=== PATIENT | female | born 1940 | race American Indian/Alaskan Native ===

== ENCOUNTER 2016-10-03 22:29 | Inpatient (IN) | payer MEDICARE ==
[2016-10-03 23:40] LABS: Anion Gap 18 mmol/L; BUN/Creatinine Ratio 13.57; Blood Urea Nitrogen 19 mg/dL (7-17); Calcium 9.1 mg/dL (8.4-10.2); Carbon Dioxide 25 mmol/L (22-30); Chloride 105.5 mmol/L (98-107); Glucose 119 mg/dL (65-100); Potassium 3.3 mmol/L (3.6-5.0); Sodium 145 mmol/L (137-145)
[2016-10-03 23:44] LABS: Basophils % (Auto) 0.7 % (0.0-1.8); Eosinophils % (Auto) 4.7 % (0.0-4.3); Hematocrit 31.9 % (30.3-42.9); Hemoglobin 10.4 gm/dl (10.1-14.3); Mean Corpuscular HGB Conc 33 % (30-34); Platelet Count 390 K/mm3 (140-440); Red Blood Count 4.89 M/mm3 (3.65-5.03); Red Cell Distribution Width 18.1 % (13.2-15.2); White Blood Count 8.1 K/mm3 (4.5-11.0)
[2016-10-03 23:46] LABS: Mean Corpuscular Hemoglobin 21 pg (28-32); Mean Corpuscular Volume 65 fl (79-97)
[2016-10-04] MEDS ORDERED: K-DUR PO ONE (00:08)
--- NOTE | 2016-10-04 01:00 | Emergency Department Report ---
ED Chest Pain HPI - General Chief Complaint: Chest Pain Stated Complaint: CHEST PAIN Time Seen by Provider: 10/04/16 00:07 Source: patient, old records reviewed (no previous records available) Mode of arrival: Ambulatory Limitations: No Limitations - History of Present Illness Initial Comments: 76 year female with past medical history CHF, COPD, diabetes, renal insufficiency, and CAD with stent placement presents to the hospital complaints of chest pain 2 days. Patient complains of pain on the right, middle, and left side of her chest that is intermittent. Pain is worse with movement. Shortness of breath on occasion. Positive nausea without vomiting. Patient compliant with her medication. 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 She reports a last stress test was about a year ago and she had a cardiac cath 2 years ago when she had a stent placement had a cardiac stent placed. She states she has either 1 or 2 stents. She has been compliant with her medication. EKG here positive for atrial flutter. Patient thinks she has a history of-flutter however, she is not on any anticoagulations. She does take Brilinta - Related Data Home Medications Medication Instructions Recorded Confirmed Last Taken Aspirin [Aspirin BABY CHEW TAB] 81 mg PO QDAY 10/04/16 10/04/16 Unknown AtorvaSTATin [Lipitor] 40 mg PO QHS 10/04/16 10/04/16 Unknown Gabapentin [Neurontin] 300 mg PO Q8HR 10/04/16 10/04/16 Unknown Meloxicam [Mobic] 7.5 mg PO QDAY 10/04/16 10/04/16 Unknown Nitroglycerin [Nitrostat] 0.4 mg SL Q5M PRN 10/04/16 10/04/16 Unknown Potassium Chloride 20 meq PO BID 10/04/16 10/04/16 Unknown Ticagrelor [Brilinta] 90 mg PO BID 10/04/16 10/04/16 Unknown cloNIDine [Catapres] 0.1 mg PO BID 10/04/16 10/04/16 Unknown diphenhydrAMINE [Benadryl CAP] 25 mg PO Q6HR PRN 10/04/16 10/04/16 Unknown hydrALAZINE [Apresoline TAB] 100 mg PO TID 10/04/16 10/04/16 Unknown Allergies Allergy/AdvReac Type Severity Reaction Status Date / Time hydralazine HCl Allergy Hives Verified 10/03/16 22:47 [From Apresoline] tuberculin, purified protein Allergy Hives Verified 10/03/16 22:47 deriva Heart Score - HEART Score History: Slightly suspicious EKG: Non-specific Age: > 65 Risk factors: > 3 risk factors or hx of atherosclerotic disease Troponin: < normal limit HEART Score: 5 ED Review of Systems ROS: Stated complaint: CHEST PAIN Other details as noted in HPI Comment: All other systems reviewed and negative Other: Constitutional: No fevers chills Eyes: No eye pain visual changes or discharge ENT: No ear pain or throat pain Neck: Denies pain Respiratory: Denies cough wheezing Cardiovascular: As per HPI GI: Denies abdominal pain, nausea, vomiting, diarrhea : Denies dysuria, urinary frequency, or urgency Musculoskeletal: Denies back pain, joint swelling Skin: Denies rash, lesions, erythema Neurologic: Denies headache, numbness, weakness, patient ambulates with a cane Psychiatric: Denies suicidal ideation, hallucinations ED Past Medical Hx - Past Medical History Hx Congestive Heart Failure: Yes Hx Diabetes: Yes Hx Renal Disease: Yes Hx COPD: Yes - Surgical History Past Surgical History?: Yes Hx Coronary Stent: Yes - Social History Smoking Status: Current Every Day Smoker Substance Use Type: None - Medications Home Medications: Home Medications Medication Instructions Recorded Confirmed Last Taken Type Aspirin [Aspirin BABY CHEW TAB] 81 mg PO QDAY 10/04/16 10/04/16 Unknown History AtorvaSTATin [Lipitor] 40 mg PO QHS 10/04/16 10/04/16 Unknown History Gabapentin [Neurontin] 300 mg PO Q8HR 10/04/16 10/04/16 Unknown History Meloxicam [Mobic] 7.5 mg PO QDAY 10/04/16 10/04/16 Unknown History Nitroglycerin [Nitrostat] 0.4 mg SL Q5M PRN 10/04/16 10/04/16 Unknown History Potassium Chloride 20 meq PO BID 10/04/16 10/04/16 Unknown History Ticagrelor [Brilinta] 90 mg PO BID 10/04/16 10/04/16 Unknown History cloNIDine [Catapres] 0.1 mg PO BID 10/04/16 10/04/16 Unknown History diphenhydrAMINE [Benadryl CAP] 25 mg PO Q6HR PRN 10/04/16 10/04/16 Unknown History hydrALAZINE [Apresoline TAB] 100 mg PO TID 10/04/16 10/04/16 Unknown History ED Physical Exam - General Limitations: No Limitations - Other Other exam information: General: No limitations, patient is alert in no acute distress Head exam: Atraumatic, normocephalic Eyes exam: Normal appearance, pupils equal reactive to light, extraocular movements intact ENT: Moist mucous membrane, normal oropharynx Neck exam: Normal inspection, full range of motion, no meningismus nontender Respiratory exam: Clear to auscultation bilateral, no wheezes, rales, crackles Cardiovascular: Irregular rhythm, chest wall nontender Abdomen: Soft, nondistended, and nontender, with normal bowel sounds, no rebound, or guarding Extremity: Full range of motion normal inspection no deformity, no calf tenderness or edema Back: Normal Inspection, full range of motion, no tenderness Neurologic: Alert, oriented x3, cranial nerves intact, no motor or sensory deficit Psychiatric: normal affect, normal mood Skin: Warm, dry, intact ED Course Vital Signs 10/03/16 22:49 Temperature 98.6 F Pulse Rate 94 H Blood Pressure 167/84 O2 Sat by Pulse 96 Oximetry - Reevaluation(s) Reevaluation #1: 10/04/16 01:04 pt stable pain free at this time ALFREDA score - Alfreda Score Age > 65: (1) Yes Aspirin use within the Past 7 Days: (1) Yes 3 or more CAD Risk Factors: (1) Yes 2 or more Angina events in past 24 hrs: (1) Yes Known CAD with more than 50% Stenosis: (0) No Elevated Cardiac Markers: (0) No ST Deviation Greater than 0.5mm: (0) No ALFREDA Score: 4 ED Medical Decision Making - Lab Data Result diagrams: 10/03/16 22:56 10/03/16 22:56 Lab Results 10/03/16 10/03/16 Range/Units 22:56 22:56 WBC 8.1 (4.5-11.0) K/mm3 RBC 4.89 (3.65-5.03) M/mm3 Hgb 10.4 (10.1-14.3) gm/dl Hct 31.9 (30.3-42.9) % MCV 65 L (79-97) fl MCH 21 L (28-32) pg MCHC 33 (30-34) % RDW 18.1 H (13.2-15.2) % Plt Count 390 (140-440) K/mm3 Lymph % (Auto) 26.6 (13.4-35.0) % [place] % (Auto) 6.8 (0.0-7.3) % Eos % (Auto) 4.7 H (0.0-4.3) % Baso % (Auto) 0.7 (0.0-1.8) % Lymph # 2.2 (1.2-5.4) K/mm3 [place] # 0.5 (0.0-0.8) K/mm3 Eos # 0.4 (0.0-0.4) K/mm3 Baso # 0.1 (0.0-0.1) K/mm3 Seg Neutrophils % 61.2 (40.0-70.0) % Seg Neutrophils # 5.0 (1.8-7.7) K/mm3 Sodium 145 (137-145) mmol/L Potassium 3.3 L (3.6-5.0) mmol/L Chloride 105.5 (98-107) mmol/L Carbon Dioxide 25 (22-30) mmol/L Anion Gap 18 mmol/L BUN 19 H (7-17) mg/dL Creatinine 1.4 H (0.7-1.2) mg/dL Estimated GFR 37 ml/min BUN/Creatinine Ratio 13.57 % Glucose 119 H (65-100) mg/dL Calcium 9.1 (8.4-10.2) mg/dL Troponin T < 0.010 (0.00-0.029) ng/mL - EKG Data -: EKG Interpreted by Me (aflutter rate 113, variable block) - Radiology Data Radiology results: image reviewed (cxr: naf) - Medical Decision Making Plan to admit pt to hospital for further cardiac workup - Differential Diagnosis mi, chest wall pain ,unstable angina, msk pain Critical Care Time: No Critical care attestation.: If time is entered above; I have spent that time in minutes in the direct care of this critically ill patient, excluding procedure time. ED Disposition Clinical Impression: Chest pain, H/O heart artery stent, Atrial flutter, Hypokalemia Disposition: - OP ADMIT IP TO THIS HOSP Is pt being admited?: Yes Condition: Stable Time of Disposition: 01:03 (Dr Benítez/hosp)
[2016-10-04] MEDS ORDERED: TYLENOL PO PRN (02:44)
[2016-10-04] MEDS ORDERED: DULCOLAX PR PRN (02:44)
[2016-10-04] MEDS ORDERED: ZOFRAN IV PRN (02:44)
[2016-10-04] MEDS ORDERED: MILK OF MAGNESIA PO PRN (02:44)
--- NOTE | 2016-10-04 04:19 | History and Physical Report ---
History of Present Illness Date of examination: 10/04/16 Date of admission: 10/04/16 02:44 History of present illness: 76-year-old woman with a history of CHF, coronary artery disease, chronic, COPD constant emergency room with complaint of chest pain located in the epigastric area. She describes it as a stabbing pain, intermittent in nature every 10 minutes, intensity 7/10, radiating to the bilateral chest. She took 2 nitroglycerin with some relief. Admits to nausea, diaphoresis, shortness of breath, no palpitation. Probably had sustained a stress test a year ago Patient denies cough, abdominal pain, hematochezia, dysuria, frequency, focal weakness, dysarthria, fever chills, polydipsia polyuria, hot or cold intolerance , easy bruisability, or rash or bleeding from mucosal membrane, rhinorrhea, epistaxis, earache, tinnitus, blurry vision, eye discharge, anxiety, depression. Other review of systems negative PAST SURGICAL HISTORY: Hysterectomy, tonsillectomy SOCIAL HISTORY: Smokes 6 cigarettes a day, no alcohol or drug FAMILY HISTORY: Hypertension Medications and Allergies Allergies Allergy/AdvReac Type Severity Reaction Status Date / Time hydralazine HCl Allergy Hives Verified 10/03/16 22:47 [From Apresoline] tuberculin, purified protein Allergy Hives Verified 10/03/16 22:47 deriva Home Medications Medication Instructions Recorded Confirmed Last Taken Type Aspirin [Aspirin BABY CHEW TAB] 81 mg PO QDAY 10/04/16 10/04/16 Unknown History AtorvaSTATin [Lipitor] 40 mg PO QHS 10/04/16 10/04/16 Unknown History Gabapentin [Neurontin] 300 mg PO Q8HR 10/04/16 10/04/16 Unknown History Meloxicam [Mobic] 7.5 mg PO QDAY 10/04/16 10/04/16 Unknown History Nitroglycerin [Nitrostat] 0.4 mg SL Q5M PRN 10/04/16 10/04/16 Unknown History Potassium Chloride 20 meq PO BID 10/04/16 10/04/16 Unknown History Ticagrelor [Brilinta] 90 mg PO BID 10/04/16 10/04/16 Unknown History cloNIDine [Catapres] 0.1 mg PO BID 10/04/16 10/04/16 Unknown History diphenhydrAMINE [Benadryl CAP] 25 mg PO Q6HR PRN 10/04/16 10/04/16 Unknown History hydrALAZINE [Apresoline TAB] 100 mg PO TID 10/04/16 10/04/16 Unknown History Active Meds: Active Medications Acetaminophen (Tylenol) 650 mg PO Q4H PRN PRN Reason: Pain MILD(1-3)/Fever >100.5/ORTIZ Aspirin (Baby Aspirin) 81 mg PO QDAY AMBER Atorvastatin Calcium (Lipitor) 40 mg PO QHS [facility] Bisacodyl (Dulcolax) 10 mg [place] QDAY PRN PRN Reason: Constipation unrelieved by MOM Clonidine HCl (Catapres) 0.1 mg PO BID AM[facility] Gabapentin (Neurontin) 300 mg PO Q8HR AMBER Magnesium Hydroxide (Milk Of Magnesia) 30 ml PO Q4H PRN PRN Reason: Constipation Morphine Sulfate (Morphine) 2 mg IV Q4H PRN PRN Reason: Pain, Moderate (4-6) Ondansetron HCl (Zofran) 4 mg IV Q8H PRN PRN Reason: N/V unrelieved by Reglan Ticagrelor (Brilinta) 90 mg PO BID [facility] Exam - Physical Exam Narrative exam: Gen. appearance: Patient lying in bed, no apparent distress HEENT: Normocephalic, atraumatic, pupils equally round and reactive to light, extraocular movement intact, and no sclericterus,. No JVD or thyromegaly or nodule,neck supple, no carotid bruit ,mucous membranes moist, no exudate or erythema Heart: S1, S2, regular rate and rhythm Lungs: Clear to auscultation bilaterally, breathing comfortable Abdomen: Positive bowel sounds, nontender, nondistended, no organomegaly Extremity: No edema, cyanosis, clubbing Skin: No rash, nodules, warm, dry Neuro: Oriented 3, cranial nerves II-12 intact, speech is fluent, motor and sensory intact - Constitutional Vitals: Temp Pulse Resp BP Pulse Ox 98.6 F 94 H 167/84 96 10/03/16 22:49 10/03/16 22:49 10/03/16 22:49 10/03/16 22:49 Results - Labs CBC & Chem 7: 10/03/16 22:56 10/03/16 22:56 - Imaging and Cardiology EKG: image reviewed Chest x-ray: image reviewed Assessment and Plan Unstable angina Coronary artery disease CHF, stable Chronic kidney disease COPD Admits medicine Check cardiac enzymes, consult cardiology Continue appropriate outpatient medications Due to prophylaxis initiate
[2016-10-04] MEDS: NEURONTIN PO SCH ×3 (06:50→21:35)
[2016-10-04] MEDS ORDERED: LEXISCAN IV ONE (08:16)
[2016-10-04] MEDS: APRESOLINE IV PRN ×2 (08:25→18:12)
--- NOTE | 2016-10-04 09:40 | XRay Report ---
AP CHEST: HISTORY: chest pain No comparison. Mild cardiomegaly is suspected. Normal pulmonary vascularity. The lungs are clear. The bony thorax is grossly intact. IMPRESSION: Mild cardiomegaly. Lungs clear.
[2016-10-04] MEDS ORDERED: LOVENOX SUB-Q SCH (10:00)
--- NOTE | 2016-10-04 10:35 | Consultation ---
History of Present Illness Consult date: 10/04/16 Consult reason: chest pain History of present illness: 76 YO woman with h/o CAD s/p PCI about 2 years ago (normally followed by vp strategy at [facility]), CHF, htn, and HL who presented to ED with stabbing type of left sided chest pain. She describes the pain as sharp sensation mostly in the epigastric area with associated nausea and diaphoresis. She thinks pain gets worse with exertion. She has not had any palpitations syncope or pre- syncope. Of note, patient has midline scar in sub-xiphoid area and is not sure what kind of surgery she previously had - she thinks it may have been a pericardial window many years ago due to pericardial effusion which was done in [place]. ECG reveals NSR, LVH with repolarization abnormality. Past History Past Medical History: CAD, heart failure, hypertension, hyperlipidemia Past Surgical History: PTCA, Other (possible pericardial window.) Social history: smoking (smokes 6 cigarettes per day.) Medications and Allergies Allergies Allergy/AdvReac Type Severity Reaction Status Date / Time hydralazine HCl Allergy Hives Verified 10/03/16 22:47 [From Apresoline] tuberculin, purified protein Allergy Hives Verified 10/03/16 22:47 deriva Home Medications Medication Instructions Recorded Confirmed Last Taken Type Aspirin [Aspirin BABY CHEW TAB] 81 mg PO QDAY 10/04/16 10/04/16 Unknown History AtorvaSTATin [Lipitor] 40 mg PO QHS 10/04/16 10/04/16 Unknown History Gabapentin [Neurontin] 300 mg PO Q8HR 10/04/16 10/04/16 Unknown History Meloxicam [Mobic] 7.5 mg PO QDAY 10/04/16 10/04/16 Unknown History Nitroglycerin [Nitrostat] 0.4 mg SL Q5M PRN 10/04/16 10/04/16 Unknown History Potassium Chloride 20 meq PO BID 10/04/16 10/04/16 Unknown History Ticagrelor [Brilinta] 90 mg PO BID 10/04/16 10/04/16 Unknown History cloNIDine [Catapres] 0.1 mg PO BID 10/04/16 10/04/16 Unknown History diphenhydrAMINE [Benadryl CAP] 25 mg PO Q6HR PRN 10/04/16 10/04/16 Unknown History hydrALAZINE [Apresoline TAB] 100 mg PO TID 10/04/16 10/04/16 Unknown History Active Meds: Active Medications Acetaminophen (Tylenol) 650 mg PO Q4H PRN PRN Reason: Pain MILD(1-3)/Fever >100.5/ORTIZ Aspirin (Baby Aspirin) 81 mg PO QDAY [facility] Atorvastatin Calcium (Lipitor) 40 mg PO QHS [facility] Bisacodyl (Dulcolax) 10 mg [place] QDAY PRN PRN Reason: Constipation unrelieved by MOM Clonidine HCl (Catapres) 0.1 mg PO BID [facility] Gabapentin (Neurontin) 300 mg PO Q8HR AMBER Last Admin: 10/04/16 06:50 Dose: 300 mg Hydralazine HCl (Apresoline) 10 mg IV Q3HR PRN PRN Reason: Hypertension Last Admin: 10/04/16 08:25 Dose: 10 mg Magnesium Hydroxide (Milk Of Magnesia) 30 ml PO Q4H PRN PRN Reason: Constipation Morphine Sulfate (Morphine) 2 mg IV Q4H PRN PRN Reason: Pain, Moderate (4-6) Ondansetron HCl (Zofran) 4 mg IV Q8H PRN PRN Reason: N/V unrelieved by Reglan Ticagrelor (Brilinta) 90 mg PO BID [facility] Review of Systems All systems: negative (per hpi) Physical Examination Vital Signs Temp Pulse BP Pulse Ox 98.6 F 94 H 167/84 96 10/03/16 22:49 10/03/16 22:49 10/03/16 22:49 10/03/16 22:49 General appearance: no acute distress HEENT: Positive: PERRL, EOMI Neck: Positive: neck supple. Negative: JVD/HJR Cardiac: Positive: Reg Rate and Rhythm, Systolic Murmur (II/ systolic ejection murmur) Lungs: Positive: Decreased Breath Sounds Neuro: Positive: Grossly Intact Abdomen: Positive: Soft, Active Bowel Sounds Extremities: Absent: edema Results 10/03/16 22:56 10/03/16 22:56 Assessment and Plan Chest pain with typical and atypical features. CAD s/p PCI htn HL Tobacco use. Recommend: Check MPI today Check Echocardiogram Adjust BP medications, add beta little.
[2016-10-04] MEDS: MORPHINE IV PRN ×2 (12:13→17:53)
[2016-10-04] MEDS: CATAPRES PO SCH ×2 (12:13→21:33)
[2016-10-04] MEDS: BABY ASPIRIN PO SCH (12:13)
--- NOTE | 2016-10-04 12:49 | Event Note ---
Date: 10/04/16 Preliminarily, MPI reveals small, mostly fixed inferior-lateral defect. Tim Paulson
--- NOTE | 2016-10-04 13:36 | Event Note ---
Date: 10/04/16 Patient seen and evaluated in ED , awaiting bed assignment Medical records reviewed, was admitted this morning with chest pain, unstable angina Underwent stress test which was abnormal, discussed with cardiology Patient complains of headache, dizziness, history of recurrent falls, we'll check CT scan of the head without contrast Medical records reviewed, agree with the current management Follow cardiology recommendations, plan of care discussed with the patient and her nurse
[2016-10-04] MEDS: BRILINTA PO SCH ×2 (14:08→21:35)
[2016-10-04] MEDS ORDERED: HABITROL TD SCH (16:30)
--- NOTE | 2016-10-04 16:35 | Cat Scan Report ---
FINAL REPORT EXAM: CT HEAD/BRAIN WO CON HISTORY: headache, history of falls TECHNIQUE: CT head without contrast PRIORS: None. FINDINGS: No acute intra-axial or extra-axial hemorrhage is identified. There is no evidence of midline shift or mass effect. The ventricles and sulci are within normal limits. Morales-white matter differentiation is intact. No acute parenchymal abnormalities seen. There are patchy and confluent hypodensities within the supratentorial white matter. Bony calvarium is grossly intact. There is increased density within mastoid air cells bilaterally likely reflecting mastoiditis which may be acute or chronic IMPRESSION: Mastoiditis bilaterally which may be acute or chronic Chronic small vessel white matter ischemic change
[2016-10-04] MEDS ORDERED: COREG PO SCH (22:00)
[2016-10-05] MEDS: NEURONTIN PO SCH ×2 (05:44→14:12)
[2016-10-05 06:03] LABS: Basophils % (Auto) 0.5 % (0.0-1.8); Eosinophils % (Auto) 5.8 % (0.0-4.3); Hematocrit 30.9 % (30.3-42.9); Hemoglobin 9.9 gm/dl (10.1-14.3); Mean Corpuscular HGB Conc 32 % (30-34); Platelet Count 316 K/mm3 (140-440); Red Cell Distribution Width 18.1 % (13.2-15.2); White Blood Count 7.4 K/mm3 (4.5-11.0)
[2016-10-05 06:05] LABS: Mean Corpuscular Hemoglobin 21 pg (28-32); Mean Corpuscular Volume 66 fl (79-97)
[2016-10-05 06:27] LABS: BUN/Creatinine Ratio 14.61; Calcium 8.5 mg/dL (8.4-10.2)
[2016-10-05 06:50] LABS: Chloride 107.7 mmol/L (98-107); Potassium 3.8 mmol/L (3.6-5.0)
[2016-10-05] MEDS ORDERED: COREG PO SCH (08:06)
[2016-10-05] MEDS ORDERED: APRESOLINE IV PRN (08:07)
--- NOTE | 2016-10-05 08:09 | Progress Note ---
Hospitalist Physical - Constitutional Vitals: Temp Pulse Resp BP Pulse Ox 98.7 F 70 20 190/87 98 10/05/16 04:41 10/05/16 04:41 10/05/16 04:41 10/05/16 04:41 10/05/16 04:41 General appearance: Present: no acute distress Results - Labs CBC & Chem 7: 10/05/16 04:46 10/05/16 04:46 Labs: Laboratory Last Values WBC 7.4 K/mm3 (4.5-11.0) 10/05/16 04:46 RBC 4.70 M/mm3 (3.65-5.03) 10/05/16 04:46 Hgb 9.9 gm/dl (10.1-14.3) L 10/05/16 04:46 Hct 30.9 % (30.3-42.9) 10/05/16 04:46 MCV 66 fl (79-97) L 10/05/16 04:46 MCH 21 pg (28-32) L 10/05/16 04:46 MCHC 32 % (30-34) 10/05/16 04:46 RDW 18.1 % (13.2-15.2) H 10/05/16 04:46 Plt Count 316 K/mm3 (140-440) 10/05/16 04:46 Lymph % (Auto) 17.2 % (13.4-35.0) 10/05/16 04:46 [place] % (Auto) 8.7 % (0.0-7.3) H 10/05/16 04:46 Eos % (Auto) 5.8 % (0.0-4.3) H 10/05/16 04:46 Baso % (Auto) 0.5 % (0.0-1.8) 10/05/16 04:46 Lymph # 1.3 K/mm3 (1.2-5.4) 10/05/16 04:46 [place] # 0.6 K/mm3 (0.0-0.8) 10/05/16 04:46 Eos # 0.4 K/mm3 (0.0-0.4) 10/05/16 04:46 Baso # 0.0 K/mm3 (0.0-0.1) 10/05/16 04:46 Seg Neutrophils % 67.8 % (40.0-70.0) 10/05/16 04:46 Seg Neutrophils # 5.0 K/mm3 (1.8-7.7) 10/05/16 04:46 Sodium 145 mmol/L (137-145) 10/05/16 04:46 Potassium 3.8 mmol/L (3.6-5.0) 10/05/16 04:46 Chloride 107.7 mmol/L (98-107) H 10/05/16 04:46 Carbon Dioxide 30 mmol/L (22-30) 10/05/16 04:46 Anion Gap 11 mmol/L 10/05/16 04:46 BUN 19 mg/dL (7-17) H 10/05/16 04:46 Creatinine 1.3 mg/dL (0.7-1.2) H 10/05/16 04:46 Estimated GFR 48 ml/min 10/05/16 04:46 BUN/Creatinine Ratio 14.61 % 10/05/16 04:46 Glucose 109 mg/dL (65-100) H 10/05/16 04:46 Calcium 8.5 mg/dL (8.4-10.2) 10/05/16 04:46 Troponin T < 0.010 ng/mL (0.00-0.029) 10/04/16 04:54
--- NOTE | 2016-10-05 09:51 | Admit Criteria Form ---
Admission Criteria Documentation: CHEST PAIN Clinical Indications for Admission to Inpatient Care (Place 'X' for any and all applicable criteria): Admission is indicated for chest pain and ANY ONE of the following(1)(2)(3)(4)(5 ): [ ]I. Angina with acute coronary syndrome (Also use Myocardial Infarction or Angina guideline) [ ]II. Hemodynamic instability [X]III. Angina needing acute intervention as indicated by ALL of the following( 11)(12): [ ]a) Unstable angina is present as indicated by angina that is ANY ONE of the following: [ ]i) New onset [ ]ii) Nocturnal [ ]iii) Prolonged at rest [ ]iv) Progressive [X]b) Angina warrants acute intervention as indicated by ANY ONE of the following: [ ]i) Recurrent angina (e.g, not responding as previously to treatment) [ ]ii) Angina at rest or with low-level activities despite initial medical therapy [ ]iii) New or presumably new ST-segment depression on ECG [ ]iv) Signs or symptoms of heart failure (eg, dyspnea, pulmonary edema) [ ]v) New or worsening mitral regurgitation [ ]vi) Hemodynamic instability [ ]vii) Dangerous arrhythmia (eg, sustained ventricular tachycardia) [ ]viii) History of percutaneous coronary intervention within 6 months [ ]ix) History of coronary artery bypass graft surgery [X]x) ALFREDA risk score of 2 or greater[A] [ ]xi) History of Diabetes(14) [ ]xii) High-risk cardiac ischemia findings on noninvasive testing (e.g, echocardiogram, treadmill testing, nuclear scan) [ ]xiii) Chronic renal insufficiency (ie, estimated GFR less than 60 mL/min/1.732m) [ ]xiv) Left ventricular ejection fraction less than 40% [ ]IV. Evidence of NC (eg, cardiac biomarkers positive, ST-segment elevation on ECG) also use Myocardial Infarction Criteria Form. [ ]V. Pulmonary edema [ ]. Respiratory distress [ ]VII. Chest pain indicative of serious diagnosis other than coronary artery disease (eg, aortic dissection) [ ]VIII. Contraindications and/or Inappropriate clinical situations for Observational Care in patients with Chest Pain, when ANY ONE of the following is required: [ ]a) Patient with risk factor for pulmonary embolism, acute coronary syndrome and myocardial infarction (18) [ ]b) Patient with Pulmonary embolism require an average LOS of 4.3 days, therefore emergency department observation management is inappropriate 18,23 [ ]c) Painful condition/s in the elderly, have the highest rate of recidivism after emergency department observation management (10.8%) 20,21,22 [ ]d) Elevated cardiac biomarker requires intensive and exhaustive care (19) [ ]IX. General contraindications and/or Inappropriate clinical situations for Observational Care in patients with Chest Pain, when ANY ONE of the following is required: [ ]a) Prediction of prolongation of LOS based on ANY ONE of the following may be considered as a contraindication for observational care 2, 3, 4, 5, 6, 7, 8, 9, 10, 11 [ ]i) Age > 65 yrs. [ ]ii) Patient arriving by ambulance [ ]iii) Patient with high acuity [ ]iv) Patient requiring vital sign monitoring [ ]v) Patient on IV medication [ ]b) Systolic blood pressures 180mmHg 3,12 [ ]c) Patient with altered mental status including delirium and other alteration of consciousness, (3) [ ]d) Patient whose discharge disposition will be to a alf home or rehabilitation home should not be managed in Emergency Department Observation Unit. CMS rule requires 3 days hospital stay before such placement. 3,13 [ ]e) Patient with failure to thrive due to broad array of etiologies 3,16,17 [ ]f) Inability to ambulate 3,14 Extended stay beyond goal length of stay may be needed for (1)(28): [ ]a) Specific condition diagnosed after evaluation (eg, pulmonary embolism, aortic dissection) [ ]b) Unstable angina [ ]c) Continued suspicion of acute coronary syndrome with inability to complete needed cardiac evaluation (eg, patient clinically unable to undergo stress testing) [ ]d) Myocardial infarction (Contents from ANGINA and CHEST PAIN clinical indications for admission to inpatient care have been integrated in this form) The original [employer] includes the [facility] content created by [employer] has been revised. The portions of the content which have been revised are identified through the use of italic text or in bold, and [facility] has neither reviewed nor approved the modified material. All other unmodified content is copyright [employer] includes the [facility]. Please see references footnoted in the original [employer] includes the [facility] edition 2016 Admission Criteria Met: Yes
[2016-10-05] MEDS: BABY ASPIRIN PO SCH (11:11)
[2016-10-05] MEDS: MORPHINE IV PRN (11:12)
[2016-10-05] MEDS: BRILINTA PO SCH (11:12)
[2016-10-05] MEDS: CATAPRES PO SCH (11:45)
[2016-10-05 12:19] VITALS: BP 195/95
--- NOTE | 2016-10-05 13:31 | Discharge Summary ---
Providers - Providers Date of Admission: 10/04/16 02:44 Date of discharge: 10/05/16 Attending physician: NUPUR SCOTT 10/04/16 04:10 Consult to Physician [CONS] Routine Consulting Provider: JEANINE ROSARIO Reason For Exam: ua Place consult to:: [facility] Notified:: Y Was contact made?: Yes If yes, spoke with:: Ana/Christopher HAMMOND Time called:: 08:20 Primary care physician: CHARTER COORDINATOR Hospitalization Reason for admission: chest pain Condition: Stable Pertinent studies: Chest x-ray; mild cardiomegaly CT head without contrast; no acute cardiopulmonary abnormality noted, mastoiditis bilateral acute on chronic, chronic small vessel white matter disease Echocardiogram; left ventricle systolic function is normal ejection fraction 55- 60% Lexiscan stress test; small fixed inferior lateral defect, normal LV function Hospital course: 76-year-old female patient significant past medical history of coronary artery disease COPD hypertension diastolic congestive heart failure was admitted through emergency room with left-sided chest pain as well as epigastric pain Patient was initially evaluated admitted to the hospital symptomatically managed , seen by cardiology, underwent Lexiscan stress test, which has fixed small defect, normal left ventricle function Patient was symptomatically managed, medications were optimized, cardiology recommended medical management, no further workup is needed at this point Today she is comfortable in bed, vital signs are stable, denies chest pain or shortness of breath, alert awake oriented 3 not in acute distress, face-to- face evaluation and physical examination done by me prior to discharge is unremarkable as detailed below The patient is hemodynamically and clinically stable for discharge and does not need any further acute inpatient care at this time Cleared by cardiology for discharge and follow-up with him in the office per schedule Smoking cessation counseling done, patient strongly advised to quit tobacco use advised nicotine patch as needed Final diagnosis; Atypical chest pain resolved Stress test negative Costochondritis Coronary artery disease status post PCI Hypertension Diastolic congestive heart failure Dyslipidemia Ongoing tobacco use Disposition: DC/TX-06 HOME UNDER HOME [facility] Time spent for discharge: 31 min Core Measure Documentation - Palliative Care Palliative Care/ Comfort Measures: Not Applicable - Core Measures Any of the following diagnoses?: none Exam - Constitutional Vitals: Temp Pulse Resp BP Pulse Ox 98.5 F 60 18 195/95 100 10/05/16 12:13 10/05/16 12:13 10/05/16 12:13 10/05/16 12:56 10/05/16 08:06 General appearance: Present: no acute distress, well-nourished - EENT Eyes: Present: PERRL, EOM intact - Neck Neck: Present: supple, normal ROM - Respiratory Respiratory effort: normal Respiratory: bilateral: diminished, negative: rales, rhonchi, wheezing - Cardiovascular Rhythm: regular Heart Sounds: Present: S1 & S2 - Extremities Extremities: no ischemia, No edema - Abdominal General gastrointestinal: Present: soft, non-tender, non-distended, normal bowel sounds - Integumentary Integumentary: Present: clear, warm - Musculoskeletal Musculoskeletal: strength equal bilaterally, generalized weakness - Psychiatric Psychiatric: appropriate mood/affect, cooperative - Neurologic Neurologic: CNII-XII intact, moves all extremities Plan Activity: advance as tolerated, fall precautions Diet: other (cardiac diet) Special Instructions: physical therapy Additional Instructions: If you have chest pain or shortness of breath, contact M.D. or go to emergency room Follow up with: EMILY HERNANDEZ MD [Primary Care Provider] - 7 Days AIDEE SANABRIA MD [Staff Physician] - 7 Days Prescriptions: Carvedilol [Coreg] 12.5 mg PO BID #60 tablet
[2016-10-05] MEDS ORDERED: APRESOLINE PO SCH (14:00)
--- NOTE | 2016-10-05 14:11 | Progress Note ---
Assessment and Plan - Patient Problems (1) Chest pain Current Visit: Yes Status: Acute Qualifiers: Chest pain type: C Ischemic chest pain type: I Plan to address problem: She had a Persantine thallium stress test yesterday, that demonstrated a small fixed basal inferior defect with no ischemia. Echocardiogram today demonstrates normal left ventricular systolic function, ejection fraction 55-60% . There is a calcified and sclerotic aortic valve, but only minimal aortic stenosis. No further cardiac workup is indicated at the current time. The patient continues to smoke cigarettes, I have strongly advised that she stop smoking and maintain a strict is cardiac risk factor modification profile. I have also advised that she follows up in our office or with her primary hourly team members within a week of discharge. Return to the emergency room if any recurrent chest pain. Subjective Date of service: 10/05/16 Interval history: Patient is comfortable, in no acute distress. No new cardiac complaints. She had a Persantine thallium stress test yesterday, that demonstrated a small fixed basal inferior defect with no ischemia. Echocardiogram today demonstrates normal left ventricular systolic function, ejection fraction 55-60% . There is a calcified and sclerotic aortic valve, but only minimal aortic stenosis. Objective Vital Signs Temp Pulse Pulse Resp Resp Resp BP 10/05/16 12:56 195/95 10/05/16 12:13 98.5 F 60 18 10/05/16 11:12 20 10/05/16 08:06 98.2 F 65 20 10/05/16 04:41 98.7 F 70 20 10/05/16 01:37 99.1 F 71 18 10/04/16 22:00 20 10/04/16 20:24 61 10/04/16 19:56 97.6 F 78 20 10/04/16 18:43 76 10/04/16 18:12 179/79 10/04/16 18:04 18 10 L 10/04/16 17:12 98.5 F 73 16 10/04/16 15:10 76 14 BP BP Pulse Ox 10/05/16 12:56 10/05/16 12:13 195/95 10/05/16 11:12 10/05/16 08:06 197/89 100 10/05/16 04:41 190/87 98 10/05/16 01:37 174/74 98 10/04/16 22:00 10/04/16 20:24 07/16/17 19:56 189/91 97 10/04/16 18:43 10/04/16 18:12 10/04/16 18:04 10/04/16 17:12 176/79 95 10/04/16 15:10 175/72 100 - Physical Examination General: No Apparent Distress HEENT: Positive: PERRL, EOMI Neck: Positive: neck supple. Negative: JVD/HJR Cardiac: Positive: Reg Rate and Rhythm Lungs: Positive: Decreased Breath Sounds Neuro: Positive: Grossly Intact Abdomen: Positive: Soft, Active Bowel Sounds Skin: Positive: Clear Extremities: Absent: edema - Labs and Meds CBC 10/05/16 Range/Units 04:46 WBC 7.4 (4.5-11.0) K/mm3 RBC 4.70 (3.65-5.03) M/mm3 Hgb 9.9 L (10.1-14.3) gm/dl Hct 30.9 (30.3-42.9) % Plt Count 316 (140-440) K/mm3 Lymph # 1.3 (1.2-5.4) K/mm3 [place] # 0.6 (0.0-0.8) K/mm3 Eos # 0.4 (0.0-0.4) K/mm3 Baso # 0.0 (0.0-0.1) K/mm3 Comprehensive Metabolic Panel 10/05/16 Range/Units 04:46 Sodium 145 (137-145) mmol/L Potassium 3.8 (3.6-5.0) mmol/L Chloride 107.7 H (98-107) mmol/L Carbon Dioxide 30 (22-30) mmol/L BUN 19 H (7-17) mg/dL Creatinine 1.3 H (0.7-1.2) mg/dL Glucose 109 H (65-100) mg/dL Calcium 8.5 (8.4-10.2) mg/dL - Imaging and Cardiology EKG: image reviewed
--- NOTE | 2016-10-12 15:15 | Query- Heart Failure ---
Daniel Herring Lina Date:___10/12/16 Solid Waste Management Engineer/CDS:___Cory / Shahriar Phone#:___[phone] Exercise your independent professional judgment when responding to query. Questions asked do not imply a particular answer is desired or expected. We greatly appreciate your clarification on this issue. Clinical Documentation States: 76 year old female was admitted on 10/04/16. The discharge summary states " 76-year-old female patient significant past medical history of coronary artery disease COPD hypertension diastolic congestive heart failure was admitted through emergency room with left-sided chest pain as well as epigastric pain Final diagnosis; Atypical chest pain resolved Diastolic congestive heart failure " If possible, Please Clarify if you mean: Acuity: [ ] Acute [ ] Acute on Chronic [ ] Chronic Type: [ ] Systolic Heart Failure [ ] Diastolic Heart Failure [ ] Combined Heart Failure [ ] Other: Present on Admission: [ ] Yes (Y) [ ] Clinically undeterminable (W) [ ] No (N) Please also document response in your Progress Notes and/or Discharge Summary and indicate if the condition was present on admission. THIAGO
== END 2016-10-05 15:00 | disposition home health service (06) | DRG 206 ==
LOC: ED 22:29 → 4A 10-04 02:44
PROVIDERS: ADMIT Internal Medicine; ATTEND Internal Medicine
DX: M94.0 Chondrocostal junction syndrome [Tietze] (principal); I13.0 Hypertensive heart and chronic kidney disease with heart failure and stage 1 through stage 4 chronic kidney disease, or unspecified chronic kidney disease; I50.30 Unspecified diastolic (congestive) heart failure; N18.9 Chronic kidney disease, unspecified; J44.9 Chronic obstructive pulmonary disease, unspecified; E11.22 Type 2 diabetes mellitus with diabetic chronic kidney disease; F17.210 Nicotine dependence, cigarettes, uncomplicated; E87.6 Hypokalemia; E78.5 Hyperlipidemia, unspecified; I25.10 Atherosclerotic heart disease of native coronary artery without angina pectoris; Z90.710 Acquired absence of both cervix and uterus; Z82.49 Family history of ischemic heart disease and other diseases of the circulatory system; Z95.5 Presence of coronary angioplasty implant and graft; Z88.8 Allergy status to other drugs, medicaments and biological substances; Z79.82 Long term (current) use of aspirin; Z79.899 Other long term (current) drug therapy
CPT/HCPCS: 36415; 70450; 71010; 78452; 80048; 82962; 84484; 85025; 93005; 93010; 93017; 93306; 96374; 96375; A9270-GY; A9502; J0360; J2270; J2785

== ENCOUNTER 2016-10-09 08:25 | Emergency (ER) | payer MEDICARE ==
--- NOTE | 2016-10-09 09:28 | Emergency Department Report ---
HPI - General Chief Complaint: Chest Pain Time Seen by Provider: 10/09/16 09:16 - HPI HPI: This is a 76-year-old Afro-[place] female presents to the emergency department via EMS with complaint of midsternal left-sided chest pain and shortness of breath that began at about 7 AM this morning. It is been going on intermittently for the past few days but currently is continuing from this morning. She took 2 sublingual nitroglycerin, 5 minutes apart, which she said did help but the discomfort has returned. She also received 325 mg of aspirin in route with EMS. She has a past medical history of CHF, COPD, diabetes, chronic kidney disease and atrial fibrillation. She says she is on a blood thinner but she mentions Brilinta. She denies any cough or wheezing currently but does feel short of breath. No recent travel or sick contacts at home. Her primary care doctor is a Dr. Moscoso and her piano accompanist is a Dr. Poe and they are both through the [facility] system. ED Past Medical Hx - Past Medical History Previous Medical History?: Yes Hx Congestive Heart Failure: Yes Hx Diabetes: Yes Hx Renal Disease: Yes Hx COPD: Yes Hx HIV: No - Surgical History Past Surgical History?: Yes Hx Coronary Stent: Yes - Social History Smoking Status: Current Every Day Smoker Substance Use Type: None - Medications Home Medications: Home Medications Medication Instructions Recorded Confirmed Last Taken Type Aspirin [Aspirin BABY CHEW TAB] 81 mg PO QDAY 10/04/16 10/09/16 10/09/16 History Gabapentin [Neurontin] 300 mg PO Q8HR 10/04/16 10/09/16 10/09/16 History Meloxicam [Mobic] 7.5 mg PO QDAY 10/04/16 10/09/16 10/09/16 History Ticagrelor [Brilinta] 90 mg PO BID 10/04/16 10/09/16 10/09/16 History cloNIDine [Catapres] 0.1 mg PO BID 10/04/16 10/09/16 10/09/16 History diphenhydrAMINE [Benadryl CAP] 25 mg PO Q6HR PRN 10/04/16 10/09/16 10/09/16 History hydrALAZINE [Apresoline TAB] 100 mg PO TID 10/04/16 10/09/16 10/09/16 History Carvedilol [Coreg] 12.5 mg PO BID #60 tablet 10/05/16 10/09/16 10/09/16 Rx Furosemide [Lasix TAB] 40 mg PO QDAY 10/09/16 10/09/16 10/09/16 History Potassium Chloride [K-Dur] 20 meq PO BID 10/09/16 10/09/16 10/09/16 History ED Review of Systems ROS: Stated complaint: CHEST PAIN Other details as noted in HPI Comment: All other systems reviewed and negative Constitutional: denies: chills, fever Eyes: denies: eye pain, eye discharge, vision change ENT: denies: ear pain, throat pain Respiratory: shortness of breath. denies: cough Cardiovascular: chest pain. denies: syncope Gastrointestinal: denies: abdominal pain, nausea, diarrhea Genitourinary: denies: urgency, dysuria, discharge Musculoskeletal: denies: back pain, joint swelling, arthralgia Skin: denies: rash, lesions Neurological: denies: headache, weakness, paresthesias Physical Exam - Physical Exam Vital Signs: Vital Signs 10/09/16 10/09/16 08:53 09:06 Temperature 98.2 F Pulse Rate 122 H 106 H Respiratory 20 Rate Blood Pressure 134/62 O2 Sat by Pulse 97 Oximetry Physical Exam: GENERAL: The patient is well-developed well-nourished. HEENT: Normocephalic. Atraumatic. Extraocular motions are intact. Patient has moist mucous membranes. Pupils equal reactive to light bilaterally. NECK: Supple. Trachea is midline. CHEST/LUNGS: Clear to auscultation. There is no respiratory distress noted. Chest pain is not reproducible to palpation of chest wall. HEART/CARDIOVASCULAR: Irregularly irregular with mild tachycardia. ABDOMEN: Abdomen is soft, nontender. Patient has normal bowel sounds. There is no abdominal distention. SKIN: Skin is warm and dry. NEURO: The patient is awake, alert. The patient is cooperative. The patient has no focal neurologic deficits. The patient has normal speech. MUSCULOSKELETAL: There is no tenderness or deformity. There is no limitation range of motion. There is no evidence of acute injury. ED Course Vital Signs 10/09/16 10/09/16 08:53 09:06 Temperature 98.2 F Pulse Rate 122 H 106 H Respiratory 20 Rate Blood Pressure 134/62 O2 Sat by Pulse 97 Oximetry ED Medical Decision Making - Lab Data Result diagrams: 10/09/16 09:13 10/09/16 09:13 - EKG Data -: EKG Interpreted by Me - EKG Data Interpretation: other (atrial fibrillation with RVR at 106 bpm, normal axis, prolonged QTC, no ST elevation UT) - Radiology Data Radiology results: report reviewed, image reviewed interpreted by me: Chest x-ray shows some mild cardiomegaly and pulmonary vascular congestion but no overt pleural effusions. No pneumonia. No pneumothorax. Ventilation perfusion scan is low probability for a pulmonary embolism. - Medical Decision Making Patient resents with acute chest pain and shortness breath. She presents with some A. fib with RVR. However rate control occurred without any rate or anti- hypertensive medication. First troponin negative. Elevated d-dimer. Along with renal insufficiency a VQ scan was done that came came back low probability for PE. Chest x-ray shows some vascular congestion and a elevated BNP but there is no overt pleural effusions or significant signs of volume overload. Patient has hypokalemia and was replaced with potassium chloride. Patient will be presented for admission to the hospitalist, Dr Morfin. - Differential Diagnosis UT, PE, CHF, Pneumonia Critical Care Time: No Critical care attestation.: If time is entered above; I have spent that time in minutes in the direct care of this critically ill patient, excluding procedure time. ED Disposition Clinical Impression: Hypokalemia, H/O heart artery stent Chest pain Qualifiers: Chest pain type: unspecified Qualified Code(s): R07.9 - Chest pain, unspecified Atrial flutter Qualifiers: Atrial flutter type: unspecified Qualified Code(s): I48.92 - Unspecified atrial flutter Disposition: OP ADMIT IP TO THIS HOSP Is pt being admited?: Yes Condition: Stable Instructions: Chest Pain (ED) Referrals: PRIMARY CARE, [Primary Care Provider] - 3-5 Days Time of Disposition: 15:03
[2016-10-09 09:29] LABS: Basophils % (Auto) 0.5 % (0.0-1.8); Eosinophils % (Auto) 4.2 % (0.0-4.3); Hematocrit 32.3 % (30.3-42.9); Hemoglobin 10.3 gm/dl (10.1-14.3); Mean Corpuscular HGB Conc 32 % (30-34); Platelet Count 328 K/mm3 (140-440); Red Cell Distribution Width 17.3 % (13.2-15.2)
[2016-10-09 09:33] LABS: Mean Corpuscular Hemoglobin 21 pg (28-32); Mean Corpuscular Volume 66 fl (79-97)
[2016-10-09 09:39] LABS: INR 0.9 (0.87-1.13)
[2016-10-09 09:46] LABS: Anion Gap 17 mmol/L; BUN/Creatinine Ratio 11.25; Blood Urea Nitrogen 18 mg/dL (7-17); Calcium 8.4 mg/dL (8.4-10.2); Carbon Dioxide 25 mmol/L (22-30); Chloride 107.6 mmol/L (98-107); Glucose 125 mg/dL (65-100); Sodium 147 mmol/L (137-145)
[2016-10-09 10:10] LABS: Potassium 2.8 mmol/L (3.6-5.0)
[2016-10-09] MEDS ORDERED: K-DUR PO ONE (10:16)
--- NOTE | 2016-10-09 10:17 | XRay Report ---
Portable chest: Chest pain. The heart is slightly enlarged. There is prominence of the bronchovascular pattern. Comparison to previous examination of October 04 shows no significant change. Impression: Mild cardiomegaly. The prominent bronchovascular pattern may be secondary to mild cardiac decompensation although primary lung disease is difficult to exclude as the etiology.
[2016-10-09] MEDS: KCL 10MEQ/100ML 10 MEQ/100 ML BAG IV SCH ×2 (12:12→13:24)
[2016-10-09] MEDS ORDERED: NACL 0.9% 100 ML ONE (13:07)
--- NOTE | 2016-10-09 13:30 | Nuclear Medicine Report ---
VENTILATION/PERFUSION LUNG SCAN: 10/09/16 10:42 CLINICAL: Chest pain and elevated d-dimer. TECHNIQUE: 15.0 millicuries of xenon-133 was administered by aerosol and 5.0 mCi of technetium 99m MAA was administered intravenously. Comparison is made to a same day chest x-ray. FINDINGS: Inhalation of Xenon gas demonstrates a normal distribution of the activity throughout both lungs. The wash out phases show moderate diffuse retention of activity in the left lung. After injection of Technetium 99m macroaggregated albumin, gamma camera imaging of the lungs in multiple projections demonstrates Normal perfusion except for moderate central perfusion deficiency in the posterior left upper lobe and left lower lobe which match with the retained lung activity. No ventilation/perfusion mismatches. IMPRESSION: Low probability for pulmonary embolus.
--- NOTE | 2016-10-09 13:44 | Admit Criteria Form ---
Admission Criteria Documentation: HEART FAILURE Clinical Indications for Admission to Inpatient Care (Place 'X' for any and all applicable criteria): Admission is indicated by 1 or more of the following(1)(2)(3)(4)(5)(6)(7) [ ]I. Hemodynamic instability(9) [X ]II. Severe electrolyte abnormalities requiring inpatient care [ ]III. Cardiac arrhythmias of immediate concern [ ]IV. Precipitating cause for acute decompensation (eg, pneumonia, pulmonary embolism) requires inpatient care [ ]V. Acute cardiac ischemia causing or associated with failure (Also use Angina or Myocardial Infarction as appropriate) [ ]. Pulmonary edema that is very severe (eg, mechanical ventilation needed, imminent or likely, need for 100% oxygen to keep oxygen saturation above 90%) [ ]VII. Massive skin edema (anasarca) with complications (eg tissue breakdown with infection, inability to void due to edema)[A] (15) [X ]VIIl. Inpatient admission required [B]rather than observation care (See Heart Failure: Observation Care as appropriate) because of 1 or more of the following(16)(17): [ ]a) Pulmonary edema that is severe or worsening as indicated by ALL of the following: [ ]1) New need for oxygen therapy to keep oxygen saturation above 90% (or increased FiO2 need from baseline) [ ]2) Has not improved sufficiently with emergency department or observation care IV diuretics or other heart failure treatments[C] [ ]b) Altered mental status that is severe or persistent [ ]c) Increased creatinine (new on laboratory test) with reduction of more than 50% in estimated glomerular filtration rate from baseline. [ ]d) Progressively (ongoing) rising creatinine (known from past laboratory test) with reduction of more than 25% in estimated glomerular filtration rate from baseline [ ]e) Acute renal insufficiency (progressively (ongoing) rising creatinine (known from past laboratory test) with reduction of more than 25% in estimated glomerular filtration rate from baseline. [ X]f) Acute renal failure [ ]g) Acute peripheral ischemia (e.g., examination shows pulseless, cool, mottled, or cyanotic extremity) [ ]h) Oyxgen administration or respiratory treatments have been needed for over 24 hours that are performable only in acute inpatient setting [ ]i) Pulmonary artery catheter monitoring [X ]j) Other condition, treatment or monitoring requiring inpatient admission Extended stay beyond goal length of stay may be needed for(1)(14)(38)(42)(45) [ ]a) Cardiac ischemia, confirmed or suspected as precipitant (1) [ ]b) Cardiogenic shock (2)(46)(47)(48)(49) [ ]c) Acute renal failure [ ]d) Stage IV chronic kidney disease (estimated glomerular filtration rate of less than 30 mL/min/1.73m2 (0.50 mL/sec/1.73m2), and not previously on chronic dialysis [ ]e) Respiratory failure (eg, need for noninvasive or invasive ventilation) ( 50) [ ]f) Concomitant pneumonia or significant electrolyte abnormality (eg, severe hyponatremia) (51) [ ]g) Newly diagnosed (new onset) atrial fibrillation (52)(53) The original [employer] content created by [employer] has been revised. The portions of the content which have been revised are identified through the use of italic text or in bold, and [facility] has neither reviewed nor approved the modified material. All other unmodified content is copyright [facility]. Please see references footnoted in the original [employer] edition 2017 Admission Criteria Met: Yes
--- NOTE | 2016-10-09 14:51 | History and Physical Report ---
History of Present Illness Chief complaint: My chest hurts. History of present illness: 76 YO Female with Diastolic CHF, DM, COPD, CKD, CAD S/P Stent Placement, Atrial Fib, Nicotine Dependence, presents to ED for evaluation. Pt states that she has been experiencing chest Pain for the past 2 days with worsening symptoms over the past 1 day. Pain is 4-5/10, Nonradiating, not worsened with exertion, or relieved with rest. Pt took 2 sublingual nitroglycerin, 5 minutes apart, which she said did help but the discomfort has returned. EMS notified, and patient transported to [facility]. Pt denies fever, chills, NVD, syncope, BRBPR, Prolonged travel/immobility, Individual/family history of DVT/PE, hemoptysis, syncope, leg swelling, calf pain, or trauma. Past History Past Medical History: atrial fib, CAD, COPD, diabetes, heart failure, renal failure Past Surgical History: Other (stent placement) Social history: single, smoking. denies: alcohol abuse, prescription drug abuse , IV drug use Family history: diabetes, hypertension Medications and Allergies Allergies Allergy/AdvReac Type Severity Reaction Status Date / Time hydralazine HCl Allergy Hives Verified 10/03/16 22:47 [From Apresoline] tuberculin, purified protein Allergy Hives Verified 10/03/16 22:47 deriva Home Medications Medication Instructions Recorded Confirmed Last Taken Type Aspirin [Aspirin BABY CHEW TAB] 81 mg PO QDAY 10/04/16 10/09/16 10/09/16 History Gabapentin [Neurontin] 300 mg PO Q8HR 10/04/16 10/09/16 10/09/16 History Meloxicam [Mobic] 7.5 mg PO QDAY 10/04/16 10/09/16 10/09/16 History Ticagrelor [Brilinta] 90 mg PO BID 10/04/16 10/09/16 10/09/16 History cloNIDine [Catapres] 0.1 mg PO BID 10/04/16 10/09/16 10/09/16 History diphenhydrAMINE [Benadryl CAP] 25 mg PO Q6HR PRN 10/04/16 10/09/16 10/09/16 History hydrALAZINE [Apresoline TAB] 100 mg PO TID 10/04/16 10/09/16 10/09/16 History Carvedilol [Coreg] 12.5 mg PO BID #60 tablet 10/05/16 10/09/16 10/09/16 Rx Furosemide [Lasix TAB] 40 mg PO QDAY 10/09/16 10/09/16 10/09/16 History Potassium Chloride [K-Dur] 20 meq PO BID 10/09/16 10/09/16 10/09/16 History Review of Systems All systems: negative Constitutional: no weight loss Ears, nose, mouth and throat: no ear pain Breasts: no swelling Cardiovascular: chest pain Respiratory: no cough Gastrointestinal: no nausea Genitourinary Female: no pelvic pain Menstruation: no ammenorrhea Rectal: no pain Musculoskeletal: no neck stiffness Integumentary: no rash Neurological: no head injury Psychiatric: no anxiety Endocrine: no cold intolerance Hematologic/Lymphatic: no easy bruising Allergic/Immunologic: no urticaria Exam - Constitutional Vitals: Temp Pulse Resp BP Pulse Ox 98.2 F 68 20 102/79 99 10/09/16 08:53 10/09/16 14:00 10/09/16 14:00 10/09/16 14:00 10/09/16 14:00 General appearance: Present: mild distress - EENT Eyes: Present: PERRL ENT: hearing intact, clear oral mucosa - Neck Neck: Present: supple, normal ROM - Respiratory Respiratory effort: normal Respiratory: bilateral: CTA - Cardiovascular Heart Sounds: Present: S1 & S2. Absent: rub, click - Extremities Extremities: pulses symmetrical, No edema Peripheral Pulses: within normal limits - Abdominal General gastrointestinal: Present: soft, non-tender, non-distended, normal bowel sounds Female genitourinary: Present: normal - Integumentary Integumentary: Present: clear, warm, dry - Musculoskeletal Musculoskeletal: gait normal, strength equal bilaterally - Psychiatric Psychiatric: appropriate mood/affect, intact judgment & insight - Neurologic Neurologic: CNII-XII intact, moves all extremities Results - Labs CBC & Chem 7: 10/09/16 09:13 10/09/16 09:13 Labs: Abnormal lab results 10/09/16 10/09/16 10/09/16 Range/Units 09:13 09:13 09:13 MCV 66 L (79-97) fl MCH 21 L (28-32) pg RDW 17.3 H (13.2-15.2) % Lymph # 1.0 L (1.2-5.4) K/mm3 Seg Neutrophils % 72.3 H (40.0-70.0) % D-Dimer 673.05 H (0-234) ng/mlDDU Sodium 147 H (137-145) mmol/L Potassium 2.8 L* D (3.6-5.0) mmol/L Chloride 107.6 H (98-107) mmol/L BUN 18 H (7-17) mg/dL Creatinine 1.6 H (0.7-1.2) mg/dL Glucose 125 H (65-100) mg/dL NT-Pro-B Natriuret Pep (0-900) pg/mL 10/09/16 Range/Units 09:13 MCV (79-97) fl MCH (28-32) pg RDW (13.2-15.2) % Lymph # (1.2-5.4) K/mm3 Seg Neutrophils % (40.0-70.0) % D-Dimer (0-234) ng/mlDDU Sodium (137-145) mmol/L Potassium (3.6-5.0) mmol/L Chloride (98-107) mmol/L BUN (7-17) mg/dL Creatinine (0.7-1.2) mg/dL Glucose (65-100) mg/dL NT-Pro-B Natriuret Pep 3706 H (0-900) pg/mL Assessment and Plan - Patient Problems (1) ACS (acute coronary syndrome) Current Visit: Yes Status: Acute Plan to address problem: serial cardiac enzymes, ekg, telemetry, supportive care, (2) CHF (congestive heart failure) Current Visit: Yes Status: Acute Qualifiers: Congestive heart failure type: diastolic Congestive heart failure chronicity: acute Qualified Code(s): I50.31 - Acute diastolic (congestive) heart failure Plan to address problem: fluid restriction, monitor uop q shift, telemetry monitoring, cardiology consulted, serial cardiac enzymes. (3) CAD (coronary artery disease) Current Visit: Yes Status: Acute Qualifiers: Coronary Disease-Associated Artery/Lesion type: C [place] vs. transplanted heart: N Associated angina: with stable angina Plan to address problem: Serial cardiac enzymes, ekg, telemetry, supportive care. continue medical management (4) Nicotine dependence Current Visit: Yes Status: Acute Qualifiers: Nicotine product type: N Substance use status: S Plan to address problem: Pt counseled, Pt refused to pick quit date. (5) DVT prophylaxis Current Visit: Yes Status: Acute
[2016-10-09] MEDS ORDERED: TYLENOL PO PRN (19:03)
[2016-10-09] MEDS ORDERED: DUONEB *Not for PRN Use IH (19:03)
[2016-10-09] MEDS ORDERED: SODIUM CHLORIDE FLUSH SYRINGE 10 ML IV PRN (19:03)
[2016-10-09 19:06] VITALS: BP 189/66
[2016-10-09] MEDS ORDERED: BENADRYL PO PRN (19:06)
[2016-10-09] MEDS ORDERED: PROVENTIL IH PRN (19:35)
[2016-10-09] MEDS ORDERED: APRESOLINE PO SCH (20:00)
[2016-10-09] MEDS ORDERED: CATAPRES PO SCH (22:00)
[2016-10-09] MEDS ORDERED: K-DUR PO SCH (22:00)
[2016-10-09] MEDS ORDERED: NEURONTIN PO SCH (22:00)
[2016-10-09] MEDS ORDERED: COREG PO SCH ×2 (22:00)
[2016-10-09] MEDS ORDERED: BRILINTA PO SCH (22:00)
[2016-10-10] MEDS ORDERED: LASIX IV SCH (10:00)
[2016-10-10] MEDS ORDERED: MOBIC PO SCH (10:00)
[2016-10-10] MEDS ORDERED: BABY ASPIRIN PO SCH (10:00)
== END 2016-10-09 19:35 | disposition left against medical advice (07) ==
LOC: ED 08:25
DX: I48.92 Unspecified atrial flutter (principal); E87.6 Hypokalemia; I50.9 Heart failure, unspecified; E11.9 Type 2 diabetes mellitus without complications; J44.9 Chronic obstructive pulmonary disease, unspecified; F17.200 Nicotine dependence, unspecified, uncomplicated
CPT/HCPCS: 36415; 71010; 78582; 80048; 83880; 84484; 85025; 85379; 85610; 93005; 93010; 96360; 99285; A9540; A9558; J3480

== ENCOUNTER 2016-12-01 15:56 | Inpatient (IN) | payer MEDICARE ==
[2016-12-01] MEDS ORDERED: SODIUM BICARBONATE IV ONE (16:09)
[2016-12-01] MEDS ORDERED: NARCAN 2 MG/2 ML ONE (16:09)
[2016-12-01] MEDS ORDERED: CALCIUM CHLORIDE IV ONE (16:09)
[2016-12-01] MEDS ORDERED: D50W (25GM) Syringe IV ONE (16:19)
[2016-12-01] MEDS ORDERED: NACL 0.9% 1000 ML 1,000 ML IV ONE (16:19)
[2016-12-01] MEDS ORDERED: NARCAN 2 MG/2 ML IV ONE (16:19)
[2016-12-01] MEDS: SODIUM BICARBONATE 100 MEQ in NACL 0.9% 1000 ML 1,000 ML IV SCH ×2 (16:25→18:27)
--- NOTE | 2016-12-01 16:26 | Emergency Department Report ---
ED Altered Mental Status HPI - General Stated Complaint: OVERDOSE/UNRESPONSIVE Time Seen by Provider: 12/01/16 16:19 - History of Present Illness Initial Comments: 76-year-old female brought in by EMS. Patient is confused and altered. She was with her grandson earlier today he called 911 when he noticed that she was having difficulty breathing. On arrival here she is tachycardic minimally responsive. Her daughter arrived fairly quickly into the arrival and mentioned the patient is a DO NOT RESUSCITATE. I was able to arouse the patient and she did say that she does not want to be intubated. It is unclear what is causing the patient's symptoms currently. Her fingerstick on arrival was in the 70s. She received some initial Narcan. MD Complaint: altered mental status, confusion, decreased responsiveness -: Sudden Severity: severe Consistency of Symptoms: getting worse Context: unknown - Related Data Home Medications Medication Instructions Recorded Confirmed Last Taken Aspirin [Aspirin BABY CHEW TAB] 81 mg PO QDAY 10/04/16 12/01/16 10/09/16 Gabapentin [Neurontin] 300 mg PO Q8HR 10/04/16 12/01/16 10/09/16 Meloxicam [Mobic] 7.5 mg PO QDAY 10/04/16 12/01/16 10/09/16 Ticagrelor [Brilinta] 90 mg PO BID 10/04/16 12/01/16 10/09/16 cloNIDine [Catapres] 0.1 mg PO BID 10/04/16 12/01/16 10/09/16 diphenhydrAMINE [Benadryl CAP] 25 mg PO Q6HR PRN 10/04/16 12/01/16 10/09/16 hydrALAZINE [Apresoline TAB] 100 mg PO TID 10/04/16 12/01/16 10/09/16 Furosemide [Lasix TAB] 40 mg PO QDAY 10/09/16 12/01/16 10/09/16 Potassium Chloride [K-Dur] 20 meq PO BID 10/09/16 12/01/16 10/09/16 Previous Rx's Medication Instructions Recorded Last Taken Type Carvedilol [Coreg] 12.5 mg PO BID #60 tablet 10/05/16 10/09/16 Rx Allergies Allergy/AdvReac Type Severity Reaction Status Date / Time hydralazine HCl Allergy Hives Verified 10/03/16 22:47 [From Apresoline] tuberculin, purified protein Allergy Hives Verified 10/03/16 22:47 deriva ED Review of Systems ROS: Stated complaint: OVERDOSE/UNRESPONSIVE Other details as noted in HPI Comment: Unobtainable due to pts medical conditions ED Past Medical Hx - Past Medical History Hx Congestive Heart Failure: Yes Hx Diabetes: Yes Hx Renal Disease: Yes Hx COPD: Yes Hx HIV: No - Surgical History Hx Coronary Stent: Yes - Family History Family history: no significant - Social History Smoking Status: Current Every Day Smoker - Medications Home Medications: Home Medications Medication Instructions Recorded Confirmed Last Taken Type Aspirin [Aspirin BABY CHEW TAB] 81 mg PO QDAY 10/04/16 12/01/16 10/09/16 History Gabapentin [Neurontin] 300 mg PO Q8HR 10/04/16 12/01/16 10/09/16 History Meloxicam [Mobic] 7.5 mg PO QDAY 10/04/16 12/01/16 10/09/16 History Ticagrelor [Brilinta] 90 mg PO BID 10/04/16 12/01/16 10/09/16 History cloNIDine [Catapres] 0.1 mg PO BID 10/04/16 12/01/16 10/09/16 History diphenhydrAMINE [Benadryl CAP] 25 mg PO Q6HR PRN 10/04/16 12/01/16 10/09/16 History hydrALAZINE [Apresoline TAB] 100 mg PO TID 10/04/16 12/01/16 10/09/16 History Carvedilol [Coreg] 12.5 mg PO BID #60 tablet 10/05/16 12/01/16 10/09/16 Rx Furosemide [Lasix TAB] 40 mg PO QDAY 10/09/16 12/01/16 10/09/16 History Potassium Chloride [K-Dur] 20 meq PO BID 10/09/16 12/01/16 10/09/16 History ED Physical Exam - General Limitations: Altered Mental Status General appearance: alert, obtunded, in distress - Head Head exam: Present: atraumatic, normocephalic - Eye Eye exam: Present: normal appearance, scleral icterus - ENT ENT exam: Present: mucous membranes dry - Neck Neck exam: Present: normal inspection - Respiratory Respiratory exam: Present: normal lung sounds bilaterally. Absent: respiratory distress, wheezes, rales - Cardiovascular Cardiovascular Exam: Present: regular rate, tachycardia, irregular rhythm. Absent: systolic murmur, diastolic murmur, rubs, gallop - GI/Abdominal GI/Abdominal exam: Present: soft, normal bowel sounds. Absent: distended, tenderness, guarding - Extremities Exam Extremities exam: Present: normal inspection - Back Exam Back exam: Present: normal inspection - Neurological Exam Neurological exam: Present: altered - Expanded Neurological Exam Expanded Best Eye Response (Mohan): (2) open to pain Best Motor Response (Velarde): (5) localizes to pain Best Verbal Response (Velarde): (5) oriented Velarde Total: 12 - Psychiatric Psychiatric exam: Present: normal affect, normal mood - Skin Skin exam: Present: warm, dry, intact, normal color. Absent: rash ED Course Vital Signs 12/01/16 12/01/16 12/01/16 16:13 16:59 18:10 Temperature 100.1 F H Pulse Rate 120 H 108 H Respiratory 37 H 27 H 27 H Rate Blood Pressure 117/84 Blood Pressure 115/78 [Left] O2 Sat by Pulse 100 100 100 Oximetry - Lab Data Result diagrams: 12/01/16 17:20 12/01/16 17:20 Lab Results 12/01/16 12/01/16 12/01/16 Range/Units 16:10 16:35 17:20 WBC 7.6 (4.5-11.0) K/mm3 RBC 4.99 (3.65-5.03) M/mm3 Hgb 10.2 (10.1-14.3) gm/dl Hct 34.0 (30.3-42.9) % MCV 68 L (79-97) fl MCH 20 L (28-32) pg MCHC 30 (30-34) % RDW 17.9 H (13.2-15.2) % Plt Count 406 (140-440) K/mm3 Lymph % (Auto) 48.2 H (13.4-35.0) % [place] % (Auto) 3.1 (0.0-7.3) % Eos % (Auto) 4.5 H (0.0-4.3) % Baso % (Auto) 0.4 (0.0-1.8) % Lymph # 3.7 (1.2-5.4) K/mm3 [place] # 0.2 (0.0-0.8) K/mm3 Eos # 0.3 (0.0-0.4) K/mm3 Baso # 0.0 (0.0-0.1) K/mm3 Seg Neutrophils % 43.8 (40.0-70.0) % Seg Neutrophils # 3.3 (1.8-7.7) K/mm3 PT (12.2-14.9) Sec. INR (0.87-1.13) APTT (24.2-36.6) Sec. POC ABG pH 7.199 L (7.35-7.45) POC ABG pCO2 25.2 L (35-45) POC ABG pO2 246 H (80-105) POC ABG HCO3 9.8 POC ABG Total CO2 11 POC ABG O2 Sat 100 POC ABG Base Excess -18 FiO2 100 % Sodium (137-145) mmol/L Potassium (3.6-5.0) mmol/L Chloride (98-107) mmol/L Carbon Dioxide (22-30) mmol/L Anion Gap mmol/L BUN (7-17) mg/dL Creatinine (0.7-1.2) mg/dL Estimated GFR ml/min BUN/Creatinine Ratio % Glucose (65-100) mg/dL POC Glucose 267 H (70-105) Calcium (8.4-10.2) mg/dL Total Bilirubin (0.1-1.2) mg/dL AST (5-40) units/L ALT (7-56) units/L Alkaline Phosphatase (35-129) units/L Total Creatine Kinase (30-135) units/L Troponin T (0.00-0.029) ng/mL Total Protein (6.3-8.2) g/dL Albumin (3.9-5) g/dL Albumin/Globulin Ratio % Plasma/Serum Alcohol (0-0.07) gm% 12/01/16 12/01/16 12/01/16 Range/Units 17:20 17:20 17:20 WBC (4.5-11.0) K/mm3 RBC (3.65-5.03) M/mm3 Hgb (10.1-14.3) gm/dl Hct (30.3-42.9) % MCV (79-97) fl MCH (28-32) pg MCHC (30-34) % RDW (13.2-15.2) % Plt Count (140-440) K/mm3 Lymph % (Auto) (13.4-35.0) % [place] % (Auto) (0.0-7.3) % Eos % (Auto) (0.0-4.3) % Baso % (Auto) (0.0-1.8) % Lymph # (1.2-5.4) K/mm3 [place] # (0.0-0.8) K/mm3 Eos # (0.0-0.4) K/mm3 Baso # (0.0-0.1) K/mm3 Seg Neutrophils % (40.0-70.0) % Seg Neutrophils # (1.8-7.7) K/mm3 PT 13.9 (12.2-14.9) Sec. INR 1.08 (0.87-1.13) APTT 30.4 (24.2-36.6) Sec. POC ABG pH (7.35-7.45) POC ABG pCO2 (35-45) POC ABG pO2 (80-105) POC ABG HCO3 POC ABG Total CO2 POC ABG O2 Sat POC ABG Base Excess FiO2 % Sodium 152 H (137-145) mmol/L Potassium 3.9 (3.6-5.0) mmol/L Chloride 98.0 (98-107) mmol/L Carbon Dioxide 20 L (22-30) mmol/L Anion Gap 38 mmol/L BUN 23 H (7-17) mg/dL Creatinine 2.1 H (0.7-1.2) mg/dL Estimated GFR 28 ml/min BUN/Creatinine Ratio 10.95 % Glucose 308 H (65-100) mg/dL POC Glucose (70-105) Calcium 8.6 (8.4-10.2) mg/dL Total Bilirubin 0.30 (0.1-1.2) mg/dL AST 141 H (5-40) units/L ALT 94 H (7-56) units/L Alkaline Phosphatase 160 H (35-129) units/L Total Creatine Kinase 280 H (30-135) units/L Troponin T 0.015 (0.00-0.029) ng/mL Total Protein 6.1 L (6.3-8.2) g/dL Albumin 3.1 L (3.9-5) g/dL Albumin/Globulin Ratio 1.0 % Plasma/Serum Alcohol < 0.01 (0-0.07) gm% - EKG Data -: EKG Interpreted by Me 12/01/16 17:40 Sinus tachycardia rate of 123 normal axis, prolonged QTC of [address]-T wave changes - Radiology Data Radiology results: image reviewed Significant cardiomegaly - Medical Decision Making 76-year-old female here with complaint of altered mental status. The patient arrived very ill and significantly altered. It is unclear to me what is causing her initial symptoms. I initially gave her 1 mg of Narcan with some minimal response. She is more alert. I discussed at length with the daughter regarding the patient's middle status and the need for possible intubation. The daughter was able to converse with her mother and the mother is adamant she does not want any sort of breathing tube. The daughter is unable to provide paperwork for this. I asked the daughter to try to obtain this paperwork. I placed an intraosseous line in the patient's right tibia. She is a difficult IV stick. I discussed the possibility of placing central line with the daughter but we agreed to hold off at this point. Plan to attempt to find other IV access, head CT labs and will likely need admission to the hospital. I discussed case with the hospitalist. Plan admit the patient to the intensive care unit. Given the continued altered mental status Portions of this chart were dictated with dictation software. There may be dictation errors contained within this note. Critical Care Time: Yes Critical care attestation.: If time is entered above; I have spent that time in minutes in the direct care of this critically ill patient, excluding procedure time. Critical Care Time: 45 ED Disposition Clinical Impression: Altered mental status, CHF (congestive heart failure) Disposition: - TO HOME OR SELFCARE Is pt being admited?: Yes Condition: Critical Referrals: PRIMARY CARE, [Primary Care Provider] - 3-5 Days
[2016-12-01 16:49] LABS: ISTAT Base Excess -18; ISTAT HCO3 9.8; ISTAT PCO2 25.2 (35-45); ISTAT PH 7.199 (7.35-7.45); ISTAT PO2 246 (80-105); ISTAT SO2 100; ISTAT TCO2 11
[2016-12-01 17:54] LABS: Basophils % (Auto) 0.4 % (0.0-1.8); Eosinophils % (Auto) 4.5 % (0.0-4.3); Mean Corpuscular HGB Conc 30 % (30-34); Platelet Count 406 K/mm3 (140-440); Red Blood Count 4.99 M/mm3 (3.65-5.03); Red Cell Distribution Width 17.9 % (13.2-15.2); White Blood Count 7.6 K/mm3 (4.5-11.0)
[2016-12-01 18:03] LABS: Hemoglobin 10.2 gm/dl (10.1-14.3); Mean Corpuscular Hemoglobin 20 pg (28-32); Mean Corpuscular Volume 68 fl (79-97)
[2016-12-01 18:13] LABS: Albumin 3.1 g/dL (3.9-5); BUN/Creatinine Ratio 10.95; Bilirubin,Total 0.3 mg/dL (0.1-1.2); Calcium 8.6 mg/dL (8.4-10.2); Potassium 3.9 mmol/L (3.6-5.0); Total Protein 6.1 g/dL (6.3-8.2)
[2016-12-01 18:19] LABS: INR 1.08 (0.87-1.13); Partial Thromboplastin Time 30.4 Sec. (24.2-36.6)
[2016-12-01] MEDS ORDERED: ZOSYN/NS 4.5GM/100ML 4.5 GM/100 ML VIAL IV ONE (18:40)
[2016-12-01] MEDS ORDERED: VANCOMYCIN/NS 1 GM/250 ML 1 GM/250 ML BAG IV ONE (18:40)
[2016-12-01] MEDS ORDERED: MORPHINE ONE ×2 (18:41→19:52)
--- NOTE | 2016-12-01 18:54 | Admit Criteria Form ---
Admission Criteria Documentation: MENTAL STATUS CHANGE Clinical Indications for Inpatient Care (Place 'X' for any and all applicable criteria): Ongoing inpatient care may be needed for 1 or more of the following(1)(2)(3)(5)( 6): [X]I. Suspected serious etiology (eg, medical disorder, MANAGER OF APPLICATION DEVELOPMENT event) of altered mental status [ ]II. Danger to self or others not manageable at lower level of care [ ]III. Grave disability (eg, inability to perform self care necessary at lower level of care) [ ]IV. Agitation or inappropriate behavior interfering with care for primary condition (eg, attempting to discontinue lines or drains prematurely, unable to cooperate with respiratory care) [ ]V. Delirium [A] [D][E] as described by 1 or more of the following(26): [ ]a) Delirium due to alcohol or sedative [F] withdrawal [ ]b) Delirium of uncertain etiology that has not responded to appropriate empiric treatment [ ]c) Delirium that prevents performance of a life-sustaining function (eg, feeding or hydrating oneself) [ ]. General contraindications and/or Inappropriate clinical situations for Observational Care in patients with Mental Status Change, when ANY ONE of the following is required: [ ]a) Prediction of prolongation of LOS based on ANY ONE of the following may be considered as a contraindication for observational care 2, 3, 4, 5, 6, 7, 8, 9, 10, 11 [ ]i) Age > 65 yrs. [ ]ii) Patient arriving by ambulance [ ]iii) Patient with high acuity [ ]iv) Patient requiring vital sign monitoring [ ]v) Patient on IV medication [ ]b) Systolic blood pressures greater than or equal to 180mmHg 3, 12 [ ]c) Patient with altered mental status including delirium and other alteration of consciousness, (3) [ ]d) Patient whose discharge disposition will be to a shelter home or rehabilitation home should not be managed in Emergency Department Observation Unit. CMS rule requires 3 days hospital stay before such placement.3,13 [ ]e) Patient with failure to thrive due to broad array of etiologies 3,16,17 [ ]f) Inability to ambulate 3,14 Extended stay beyond goal length of stay for the primary condition may be needed until ALL of the following are present(3)(5): [ ]a) Underlying medical etiology of mental status change is absent, or has been established and adequately treated [ ]b) Danger to self or others is absent or manageable at lower level of care. [ ]c) Behavior crisis management, including physical or chemical restraints, is not required or available at lower level of car [ ]d) Substance or alcohol withdrawal is absent or manageable at lower level of care. [ ]e) Behavioral symptoms (eg, agitation, somnolence, inappropriate behavior) are absent, or are manageable at lower level of care. The original [facility] [employer] content created by [facility] [employer] has been revised. The portions of the content which have been revised are identified through the use of italic text or in bold, and [facility] has neither reviewed nor approved the modified material. All other unmodified content is copyright [facility] [employer]. Please see references footnoted in the original [facility] edition 2016 Admission Criteria Met: Yes
[2016-12-01] MEDS ORDERED: MILK OF MAGNESIA PO PRN (19:44)
[2016-12-01] MEDS ORDERED: VANCOMYCIN VIAL IV ONE (19:44)
[2016-12-01] MEDS ORDERED: DULCOLAX PR PRN (19:44)
[2016-12-01] MEDS ORDERED: ZOFRAN IV PRN (19:44)
[2016-12-01] MEDS ORDERED: TYLENOL PO PRN (19:44)
[2016-12-01] MEDS ORDERED: ATIVAN IV PRN (19:44)
--- NOTE | 2016-12-01 19:49 | History and Physical Report ---
History of Present Illness Chief complaint: Confused, History of present illness: 76 YO Female with CHF, COPD, DM, CKD, Nicotine Dependence presents to ED for evaluation. Pt unable to provide history. Pt daughter at bedside and provides history. Pt was in her usual state of health upon waking this morning, but became increasingly confused today. Pt was at home with her grandson, who is her primary caregiver, earlier today and found patient to be confused. EMS notified, and uoopn arrival patient was found to be minimally responsive. Pt transported to [facility]. Pt seen and evaluated in ED and found to have sepsis. Sepsis protocol initiated. Pt is DNR. Pt family at bedside, and request treatment. Past History Past Medical History: CAD, diabetes, heart failure, renal failure Past Surgical History: Other (stent placement) Social history: single, smoking. denies: alcohol abuse, prescription drug abuse , IV drug use Family history: CAD, hypertension Medications and Allergies Allergies Allergy/AdvReac Type Severity Reaction Status Date / Time hydralazine HCl Allergy Hives Verified 10/03/16 22:47 [From Apresoline] tuberculin, purified protein Allergy Hives Verified 10/03/16 22:47 deriva Home Medications Medication Instructions Recorded Confirmed Last Taken Type Aspirin [Aspirin BABY CHEW TAB] 81 mg PO QDAY 10/04/16 12/01/16 10/09/16 History Gabapentin [Neurontin] 300 mg PO Q8HR 10/04/16 12/01/16 10/09/16 History Meloxicam [Mobic] 7.5 mg PO QDAY 10/04/16 12/01/16 10/09/16 History Ticagrelor [Brilinta] 90 mg PO BID 10/04/16 12/01/16 10/09/16 History cloNIDine [Catapres] 0.1 mg PO BID 10/04/16 12/01/16 10/09/16 History diphenhydrAMINE [Benadryl CAP] 25 mg PO Q6HR PRN 10/04/16 12/01/16 10/09/16 History hydrALAZINE [Apresoline TAB] 100 mg PO TID 10/04/16 12/01/16 10/09/16 History Carvedilol [Coreg] 12.5 mg PO BID #60 tablet 10/05/16 12/01/16 10/09/16 Rx Furosemide [Lasix TAB] 40 mg PO QDAY 10/09/16 12/01/16 10/09/16 History Potassium Chloride [K-Dur] 20 meq PO BID 10/09/16 12/01/16 10/09/16 History Active Meds: Active Medications Sodium Bicarbonate 100 meq/ (Sodium Chloride) 1,100 mls @ 0 mls/hr IV DIRECT AMBER Last Admin: 12/01/16 16:25 Dose: 999 mls/hr Vancomycin HCl (Vancomycin/Ns 1 Gm/250 Ml) 1 gm in 250 mls @ 167.007 mls/hr IV ONCE ONE PRN Reason: Protocol Stop: 12/01/16 20:09 Review of Systems ROS unobtainable: due to mental status Exam - Constitutional Vitals: Temp Pulse Resp BP Pulse Ox 100.1 F H 82 27 H 114/60 100 12/01/16 18:00 12/01/16 18:00 12/01/16 18:10 12/01/16 18:00 12/01/16 18:10 General appearance: Present: mild distress - EENT Eyes: Present: PERRL ENT: hearing intact, clear oral mucosa - Neck Neck: Present: supple, normal ROM - Respiratory Respiratory: bilateral: diminished - Cardiovascular Heart Sounds: Present: S1 & S2. Absent: rub, click - Extremities Extremities: pulses symmetrical, No edema Peripheral Pulses: within normal limits - Abdominal General gastrointestinal: Present: soft, non-tender, non-distended, normal bowel sounds Female genitourinary: Present: normal - Integumentary Integumentary: Present: clear, dry, clammy, decreased turgor - Musculoskeletal Musculoskeletal: generalized weakness - Psychiatric Psychiatric: no intact judgment & insight, no memory intact - Neurologic Neurologic: no gait normal Results - Labs CBC & Chem 7: 12/01/16 17:20 12/01/16 17:20 Labs: Abnormal lab results 12/01/16 12/01/16 12/01/16 Range/Units 16:10 16:35 17:20 MCV 68 L (79-97) fl MCH 20 L (28-32) pg RDW 17.9 H (13.2-15.2) % Lymph % (Auto) 48.2 H (13.4-35.0) % Eos % (Auto) 4.5 H (0.0-4.3) % POC ABG pH 7.199 L (7.35-7.45) POC ABG pCO2 25.2 L (35-45) POC ABG pO2 246 H (80-105) Sodium (137-145) mmol/L Carbon Dioxide (22-30) mmol/L BUN (7-17) mg/dL Creatinine (0.7-1.2) mg/dL Glucose (65-100) mg/dL POC Glucose 267 H (70-105) Lactic Acid (0.7-2.0) mmol/L AST (5-40) units/L ALT (7-56) units/L Alkaline Phosphatase (35-129) units/L Total Creatine Kinase (30-135) units/L Total Protein (6.3-8.2) g/dL Albumin (3.9-5) g/dL 12/01/16 12/01/16 Range/Units 17:20 17:20 MCV (79-97) fl MCH (28-32) pg RDW (13.2-15.2) % Lymph % (Auto) (13.4-35.0) % Eos % (Auto) (0.0-4.3) % POC ABG pH (7.35-7.45) POC ABG pCO2 (35-45) POC ABG pO2 (80-105) Sodium 152 H (137-145) mmol/L Carbon Dioxide 20 L (22-30) mmol/L BUN 23 H (7-17) mg/dL Creatinine 2.1 H (0.7-1.2) mg/dL Glucose 308 H (65-100) mg/dL POC Glucose (70-105) Lactic Acid 14.90 H* (0.7-2.0) mmol/L AST 141 H (5-40) units/L ALT 94 H (7-56) units/L Alkaline Phosphatase 160 H (35-129) units/L Total Creatine Kinase 280 H (30-135) units/L Total Protein 6.1 L (6.3-8.2) g/dL Albumin 3.1 L (3.9-5) g/dL Assessment and Plan - Patient Problems (1) Sepsis Current Visit: Yes Status: Acute Qualifiers: Sepsis type: S Plan to address problem: IV abx, IVF, monitor uop q shift, supportive care, blood cultures, (2) Encephalopathy acute Current Visit: Yes Status: Acute Plan to address problem: Toxic encephalopathy: treat sepsis, IV abx, supportive care. (3) Lactic acidosis Current Visit: Yes Status: Acute Plan to address problem: IVF resuscitation, monitor uop q shift, serial lactic acid level (4) ARF (acute renal failure) Current Visit: Yes Status: Acute Qualifiers: Acute renal failure type: A Plan to address problem: IVF resuscitation, monitor uop q shift, urine electrolytes if decreased uop overnight. (5) DVT prophylaxis Current Visit: Yes Status: Acute
[2016-12-01] MEDS ORDERED: VANCOMYCIN PHARMACY TO DOSE IV SCH (20:00)
[2016-12-01] MEDS: NACL 0.9% 1000 ML IV ONE ×2 (20:00→20:03)
[2016-12-01] MEDS ORDERED: MORPHINE IV ONE (20:06)
[2016-12-01 20:10] LABS: ISTAT Base Excess -13; ISTAT HCO3 12.5; ISTAT PCO2 23.7 (35-45); ISTAT PH 7.332 (7.35-7.45); ISTAT PO2 121 (80-105); ISTAT SO2 99; ISTAT TCO2 13
[2016-12-01] MEDS ORDERED: ZOSYN/NS 2.25 GM/50ML 2.25 GM/50 ML BAG IV SCH (21:00)
[2016-12-01] MEDS ORDERED: ATIVAN ONE (21:15)
[2016-12-01] MEDS ORDERED: VANCOMYCIN 1,500 MG in NACL 0.9% 500 ML 500 ML IV ONE (21:30)
[2016-12-01] MEDS ORDERED: ZOSYN/NS 4.5GM/100ML 4.5 GM/100 ML VIAL IV SCH (22:00)
--- NOTE | 2016-12-01 22:47 | Cat Scan Report ---
FINAL REPORT EXAM: CT HEAD/BRAIN WO CON HISTORY: Altered Mental Status TECHNIQUE: Noncontrast CT axial images of the brain. PRIORS: 04 October 2016. FINDINGS: Small, extra-axial, hyperdense focus along anterior falx measuring approximately 2 cm long and 3 mm in width, probably representing subdural hematoma. No significant mass effect. Patchy low density in the periventricular and subcortical white matter is nonspecific, but may relate to chronic small vessel ischemic change. Probable old lacunar infarct changes in the bilateral basal ganglia again noted. Age-related volume loss. No parenchymal mass, mass effect, hemorrhage, midline shift or hydrocephalus. No evidence of acute cortical infarct. No other abnormal, extra-axial fluid or air collection. Osseous calvarium grossly intact. Soft tissue emphysema and some edema noted in right temporal scalp and also pterygoid region may be posttraumatic, but nonspecific. Very mild, partial opacification of bilateral inferior mastoid air complexes decreased from comparison. IMPRESSION: 1. Findings compatible with small, anterior parafalcine subdural hematoma. 2. Chronic ischemic and atrophic changes. Dr. Wiggins discussed results with Dr. Benítez on 01 December 2016 at approximately 2233 hours EST.
--- NOTE | 2016-12-01 23:11 | Cat Scan Report ---
FINAL REPORT PROCEDURE: CT ABDOMEN PELVIS WO CON TECHNIQUE: Computerized axial tomography of the abdomen and pelvis was performed without intravenous contrast. This study is performed without intravascular contrast material and its sensitivity for abdominal and pelvic pathology, including neoplasms, inflammation, abscess, free fluid, thrombosis, arterial dissection and infarction, is reduced compared with a contrast enhanced study. HISTORY: sepsis, COMPARISON: No prior studies are available for comparison. FINDINGS: Visualized lower thorax: The heart size is enlarged. There is a significant pericardial effusion.. Liver: The liver is enlarged. Minimal ascites is noted.. Spleen: Normal size and attenuation. Gallbladder and biliary system: The gallbladder lumen is distended. Pericholecystic fluid is noted. No stones are identified. Further evaluation with ultrasound may be of benefit. There is slight prominence of the central biliary ductal system.. Pancreas: Normal. Adrenals: Normal. Kidneys: Both kidneys have normal size. No hydronephrosis. No renal stones or masses. GI tract: The stomach is normal. The small bowel has a normal caliber. No obstruction. No ileus or enteritis. Moderate fecal debris throughout the colon. Evaluation of the bowel is limited without oral and IV contrast.. Lymph nodes and mesentery: Normal. Vasculature: Moderate atherosclerosis of the aorta and all branching vessels.. Bladder: There is a Meneses catheter within the urinary bladder. Reproductive organs: No pelvic masses. Peritoneum: Mild ascites. Musculoskeletal structures: Mild degenerative changes of the thoracic and lumbar spine.. Other: None. IMPRESSION: There is no evidence of intestinal or urinary tract obstruction. Moderate fecal debris in the colon may represent constipation. Hepatomegaly. Mild dilatation of the central biliary ductal system. Slight distention of the gallbladder lumen with pericholecystic fluid noted. Further evaluation with ultrasound is recommended. Mild ascites. Moderate cardiomegaly with significant pericardial effusion is noted in the lower thorax..
--- NOTE | 2016-12-01 23:23 | Event Note ---
Date: 12/01/16 Notified by the radiologist that the patient had a subdural hematoma I have discussed the findings with the patient and son at bedside Patient CODE STATUS is DO NOT RESUSCITATE, confirmed by her Patient is able to follow commands and is lucid I have consulted neurosurgeon Dr. Gerard Aguilar
--- NOTE | 2016-12-02 00:42 | Event Note ---
Date: 12/02/16 Called to a CODE BLUE for patient around 12:15 AM. Per earlier discussions with both the patient and the daughter patient was a DO NOT RESUSCITATE. When I arrived to the care of the nurses were bagging her and checking for pulses. Per the nurse's patient had gone to the bathroom and syncopized on the toilet. The hospital medicine physician was present and I allowed them to handle the pronouncement.
[2016-12-02 00:59] VITALS: BP 123/76
--- NOTE | 2016-12-02 01:03 | Event Note ---
Date: 12/02/16 CODE BLUE called Patient had a syncopal episode after bowel movement She was pronounced at 1220 Son was at bedside
--- NOTE | 2016-12-02 07:59 | XRay Report ---
AP CHEST: HISTORY: Altered mental status Mild cardiomegaly and pulmonary venous congestion have decreased since 10/09/16. The lungs are clear. No evidence for pneumonia, CHF or pneumothorax. Unremarkable bony structures. IMPRESSION: Mild cardiomegaly. Lungs clear.
--- NOTE | 2016-12-02 09:00 | Query- Renal Failure ---
Daniel Herring____Navjot Date:____12/02/2016 Surg Rn/ANIYAH:___Eli Phone#:___[phone] Exercise your independent professional judgment when responding to query. Questions asked do not imply a particular answer is desired or expected. We greatly appreciate your clarification on this issue. Clinical Documentation States: 76 Year old female was admitted on 12/01/2016 because of confusion. The IM H&P note states "(4) ARF (acute renal failure) Current Visit: Yes Status: Acute." Clinical Findings Show: Creatinine: 2.1 Please clarify if you mean: Acute Renal Failure with or due to: [ ] Tubular Necrosis [ ] Medullary Necrosis [ ] Vasomotor Nephropathy [ ] Shock Kidney [ ] Tubular Nephrosis [ ] Renal Tubular Stasis [ ] Cortical Necrosis [ ] Acute Renal Failure (unspecified) [ ] Lower Tubular Nephrosis [ ] Other: [ ] Not Applicable Present on Admission: [ ] Yes (Y) [ ] Clinically undeterminable (W) [ ] No (N) Please also document response in your Progress Notes and/or Discharge Summary and indicate if the condition was present on admission. [place]
--- NOTE | 2016-12-02 09:06 | Query-Altered Level of Consc. ---
Daniel Hunter Date: 12/02/2016 Kyle/ANIYAH:___Eli Phone#:___[phone] Exercise your independent professional judgment when responding to this query. Questions asked do not imply a particular answer is desired or expected. We greatly appreciate your clarification on this issue. Clinical Documentation States: 76 Year old female was admitted on 12/01/2016 because of confusion. The IM H&P note states "Assessment and Plan - Patient Problems (1) Sepsis Current Visit: Yes Status: Acute (2) Encephalopathy acute Current Visit: Yes Status: Acute Please provide an appropriate diagnosis clarifying the Etiology and Acuity of this clinical scenario: [ ] Metabolic Encephalopathy [ ] Toxic Encephalopathy [ ] Toxic - Metabolic Encephalopathy [ ] Septic Encephalopathy with Sepsis [ ] Septic Encephalopathy without Sepsis [ ] Acute Hepatic Encephalopathy [ ] Subacute Hepatic Encephalopathy [ ] Encephalopathy [ ] Other: [ ] Unable To Determine [ ]Comment/Explanation: Present on Admission: [ ] Yes (Y) [ ] Clinically undeterminable (W) [ ] No (N) Please also document response in your Progress Notes and/or Discharge Summary and indicate if the condition was present on admission. [place]
[2016-12-02] MEDS ORDERED: VANCOMYCIN VIAL 500 MG in NACL 0.9% 100 ML IV SCH (22:00)
== END 2016-12-02 00:20 | DRG 871 ==
LOC: ED 15:56 → CC2 19:44
PROVIDERS: ADMIT Internal Medicine; ATTEND Hospitalist
PROC: 4A033R1 Measurement of Arterial Saturation, Peripheral, Percutaneous Approach (ICD-10-PCS; principal; 2016-12-01)
DX: A41.9 Sepsis, unspecified organism (principal); G93.49 Other encephalopathy; N17.9 Acute kidney failure, unspecified; E87.2 Acidosis; I13.0 Hypertensive heart and chronic kidney disease with heart failure and stage 1 through stage 4 chronic kidney disease, or unspecified chronic kidney disease; Z66 Do not resuscitate; J44.9 Chronic obstructive pulmonary disease, unspecified; I50.9 Heart failure, unspecified; I25.10 Atherosclerotic heart disease of native coronary artery without angina pectoris; N18.9 Chronic kidney disease, unspecified; E11.9 Type 2 diabetes mellitus without complications; Z88.8 Allergy status to other drugs, medicaments and biological substances; Z79.899 Other long term (current) drug therapy; Z98.61 Coronary angioplasty status; Z79.82 Long term (current) use of aspirin; Z82.49 Family history of ischemic heart disease and other diseases of the circulatory system
CPT/HCPCS: 36415; 70450; 71010; 74176; 80053; 80320; 82140; 82550; 82803; 82962; 84484; 85025; 85610; 85730; 86850; 86900; 86901; 93005; 93010; G0480; J2060; J2270; J2310; J2543; J3370; J7030; J7040